=== PATIENT | male | born 2000 | race Caucasian/White ===

== ENCOUNTER 2019-05-01 12:04 | Outpatient (CLI) | payer BC ==
--- NOTE | 2019-05-01 16:14 | XRAY Report ---
Reason: R ANKLE PAIN Procedure Date: 05/01/2019 Accession Number: [id number] / [id number] Procedure: XR - Ankle 3 View RT CPT Code: FULL RESULT: EXAM: RIGHT ANKLE RADIOGRAPHY EXAM DATE: 05/01/2019 01:35 PM. CLINICAL HISTORY: Right ankle pain. COMPARISON: None. TECHNIQUE: 3 views. FINDINGS: Bones: Normal. No fractures or bone lesions. Joints: Normal. No effusion. No subluxations. The ankle mortise is normally aligned. Soft Tissues: Normal. No soft tissue swelling. IMPRESSION: Normal ankle radiography. [facility]
== END 2019-05-01 12:05 | disposition home or self-care (01) ==
LOC: DI 12:04
PROVIDERS: ATTEND Specialist
DX: M25.571 Pain in right ankle and joints of right foot (principal)

== ENCOUNTER 2021-04-27 15:09 | Outpatient (CLI) | payer BC, OTHER ==
--- NOTE | 2021-04-27 17:33 | XRAY Report ---
PROCEDURE: Ankle 3 View LT INDICATIONS: LEFT LATERAL ANKLE SPRAIN TECHNIQUE: 3 views of the ankle were acquired. COMPARISON: None. FINDINGS: Bones: No fractures or dislocations. Ankle mortise is normally aligned. No suspicious bony lesions . Soft tissues: No tibiotalar joint effusion. Achilles tendon appears normal. IMPRESSION: Negative examination. If the patient's pain or other symptoms persist, consider further evaluation with MRI. Reviewed by: Farzad Weaver MD on 04/27/2021 5:32 PM PDT Approved by: Farzad Weaver MD on 04/27/2021 5:32 PM PDT Station ID: [id number]
== END 2021-04-27 15:10 | disposition home or self-care (01) ==
LOC: DI.N 15:09
PROVIDERS: ATTEND Physician Assistant Medical
DX: S93.402A Sprain of unspecified ligament of left ankle, initial encounter (principal)